=== PATIENT | male | born 1975 | race Caucasian/White ===

== ENCOUNTER 2020-11-09 15:03 | Outpatient (CLI) | payer OTHER ==
[2020-11-09 17:06] LABS: Hemoglobin 13.8 g/dL (13.5-17.5); Mean Corpuscular HGB CONC 34.2 g/dL (32.0-36.0); Mean Corpuscular Hemoglobin 32.2 pg (27.0-33.0); Mean Corpuscular Volume 94.4 fl (81.2-95.1); Mean Platelet Volume 11.1 fl (7.4-10.4); Platelet Count 200 10x3/uL (150-450); Red Blood Cell (RBC) Count 4.28 10x6/uL (4.32-5.72); White Blood Cell (WBC) Count 7.3 10x3/uL (3.5-10.5)
[2020-11-09 17:15] LABS: Anion Gap 15 mmol/L (10-20); BUN (Urea Nitrogen) 20 mg/dL (8.9-20.6); Calc. Creatinine Clearance 0 mL/min (70-130); Calcium 9.4 mg/dL (7.8-10.44); Carbon Dioxide 27 mmol/L (22-29); Chloride 100 mmol/L (98-107); Glucose 81 mg/dL (70-105); Potassium 4.1 mmol/L (3.5-5.1); Sodium 138 mmol/L (136-145)
[2020-11-10 01:57] LABS: SARS-CoV-2 PCR by NAA Not Detected (NotDetected)
== END 2020-11-09 15:04 | disposition home or self-care (01) ==
LOC: LABBT 15:03
PROVIDERS: ATTEND Neurological Surgery
DX: Z01.818 Encounter for other preprocedural examination (principal); Z20.822 Contact with and (suspected) exposure to COVID-19; M48.062 Spinal stenosis, lumbar region with neurogenic claudication
CPT/HCPCS: 80048; 85027; 87635; 93005; 93010; U0003; U0005

== ENCOUNTER 2020-11-14 06:46 | Day surgery (SDC) | payer OTHER ==
[2020-11-13 09:54] VITALS: BMI 32.8
[2020-11-14] MEDS ORDERED: Fentanyl 100 MCG/2 ML VIAL ONE ×3 (08:52→11:15)
[2020-11-14] MEDS ORDERED: PROPOFOL 200 MG/20 ML VIAL ONE (08:58)
[2020-11-14] MEDS ORDERED: Glycopyrrolate 0.2 MG/ML 5 ML SYRINGE ONE (08:58)
[2020-11-14] MEDS ORDERED: Lidocaine 1% PF 5 ML VIAL ONE (08:58)
[2020-11-14] MEDS ORDERED: Ondansetron PF 4 MG/2 ML Vial ONE (08:58)
[2020-11-14] MEDS ORDERED: Dexamethasone 20 MG/5 ML VIAL ONE (08:58)
[2020-11-14] MEDS ORDERED: Rocuronium Bromide 10 MG/ML (10ML VIAL) ONE (08:58)
[2020-11-14] MEDS ORDERED: HYDROmorphone 2 MG/ML VIAL ONE (09:58)
[2020-11-14] MEDS ORDERED: Tamsulosin HCl 0.4 MG CAP ONE (10:25)
[2020-11-14] MEDS ORDERED: HYDROcodone/Acetaminophen 5/325 mg Tablet ONE (12:20)
== END 2020-11-14 12:32 | disposition home or self-care (01) ==
LOC: SDC 06:46
PROVIDERS: ATTEND Neurological Surgery
PROC: 01NB0ZZ Release Lumbar Nerve, Open Approach (ICD-10-PCS; principal; 2020-11-14)
DX: M48.062 Spinal stenosis, lumbar region with neurogenic claudication (principal); Z79.899 Other long term (current) drug therapy
CPT/HCPCS: 76000; J0690; J1100; J1170; J2405; J2704; J3010; J3370

== ENCOUNTER 2021-06-05 09:15 | Outpatient (CLI) | payer OTHER ==
[2021-06-05 10:05] LABS: Hemoglobin 14.3 g/dL (13.5-17.5); Mean Corpuscular HGB CONC 33.3 g/dL (32.0-36.0); Mean Corpuscular Hemoglobin 32.2 pg (27.0-33.0); Mean Corpuscular Volume 96.6 fl (81.2-95.1); Mean Platelet Volume 10.9 fl (7.4-10.4); Platelet Count 202 10x3/uL (150-450); RBC Distribution Width 12.5 % (11.5-14.5); Red Blood Cell (RBC) Count 4.44 10x6/uL (4.32-5.72); White Blood Cell (WBC) Count 6.9 10x3/uL (3.5-10.5)
[2021-06-05 10:54] LABS: Anion Gap 14 mmol/L (10-20); BUN (Urea Nitrogen) 17 mg/dL (8.9-20.6); Calc. Creatinine Clearance 0 mL/min (70-130); Calcium 9.5 mg/dL (7.8-10.44); Carbon Dioxide 28 mmol/L (22-29); Chloride 100 mmol/L (98-107); Glucose 90 mg/dL (70-105); Potassium 4.4 mmol/L (3.5-5.1); Sodium 138 mmol/L (136-145)
[2021-06-06 12:04] LABS: SARS-CoV-2 PCR by NAA Not Detected (NotDetected)
== END 2021-06-05 09:16 | disposition home or self-care (01) ==
LOC: LABBT 09:15
PROVIDERS: ATTEND Neurological Surgery
DX: Z01.818 Encounter for other preprocedural examination (principal); M48.062 Spinal stenosis, lumbar region with neurogenic claudication; Z20.822 Contact with and (suspected) exposure to COVID-19
CPT/HCPCS: 80048; 85027; 93005; 93010; U0003; U0005

== ENCOUNTER 2021-06-10 06:55 | Observation (INO) | payer OTHER ==
[2021-06-07 14:59] VITALS: BMI 34.8
[2021-06-10] MEDS ORDERED: ceFAZolin Sodium (SDC) 2 GM/100 ML BAG ONE (07:24)
[2021-06-10] MEDS ORDERED: Fentanyl 250 MCG/5 ML VIAL ONE (09:04)
[2021-06-10] MEDS ORDERED: Dexamethasone 20 MG/5 ML VIAL ONE (09:19)
[2021-06-10] MEDS ORDERED: Ketorolac Tromethamine 30 MG/ML VIAL ONE (09:19)
[2021-06-10] MEDS ORDERED: ePHEDrine 50 MG/ML VIAL ONE (09:19)
[2021-06-10] MEDS ORDERED: Lidocaine 1% PF 5 ML VIAL ONE (09:19)
[2021-06-10] MEDS ORDERED: PROPOFOL 200 MG/20 ML VIAL ONE (09:19)
[2021-06-10] MEDS ORDERED: Ondansetron PF 4 MG/2 ML Vial ONE (09:19)
[2021-06-10] MEDS ORDERED: Rocuronium Bromide 10 MG/ML (10ML VIAL) ONE (09:19)
[2021-06-10] MEDS ORDERED: HYDROmorphone 2 MG/ML VIAL SLOW IVP PRN (10:31)
[2021-06-10] MEDS ORDERED: Promethazine HCl 25 MG/ML VIAL IM PRN ×2 (10:31→11:45)
[2021-06-10] MEDS ORDERED: Promethazine HCl 25 MG/ML VIAL IVPB PRN (10:31)
[2021-06-10] MEDS ORDERED: Ondansetron HCl/PF 4 MG/2 ML Vial IVP PRN (10:31)
[2021-06-10] MEDS ORDERED: Meperidine HCl/PF 25 MG/ML VIAL SLOW IVP PRN (10:31)
[2021-06-10] MEDS ORDERED: Morphine Sulfate 2 MG/ML SYRINGE SLOW IVP PRN (10:31)
[2021-06-10] MEDS ORDERED: PACU-Morphine 4MG/ML VIAL SLOW IVP PRN (10:31)
[2021-06-10] MEDS ORDERED: SUGAMMADEX SODIUM 200 MG/2 ML VIAL ONE (10:45)
[2021-06-10] MEDS ORDERED: HYDROmorphone 2 MG/ML VIAL ONE (10:57)
[2021-06-10] MEDS ORDERED: Tamsulosin HCl 0.4 MG CAP ONE (11:24)
[2021-06-10] MEDS: Tamsulosin HCl 0.4 MG CAP PO SCH (11:27)
[2021-06-10] MEDS ORDERED: Promethazine HCl 12.5 MG SUPP PR PRN (11:45)
[2021-06-10] MEDS ORDERED: Promethazine 25 MG TAB PO PRN (11:45)
[2021-06-10] MEDS ORDERED: Milk Of Magnesia 30 ML UDCUP PO PRN (11:45)
[2021-06-10] MEDS ORDERED: diphenhydrAMINE 25 MG CAP PO PRN (11:45)
[2021-06-10] MEDS ORDERED: Acetaminophen/Codeine 30-300mg Tablet PO PRN (11:45)
[2021-06-10] MEDS ORDERED: Ondansetron PF 4 MG/2 ML Vial IM PRN (11:45)
[2021-06-10] MEDS ORDERED: Morphine 4 MG/ML VIAL SLOW IVP PRN ×2 (11:45)
[2021-06-10] MEDS ORDERED: traMADol HCl 50 MG TAB PO PRN ×2 (11:45)
[2021-06-10] MEDS ORDERED: Morphine 2 MG/ML VIAL SLOW IVP PRN (11:45)
[2021-06-10] MEDS ORDERED: Mag-Al 1200 mg/1200 mg/30 ML UDCUP PO PRN (11:45)
[2021-06-10] MEDS ORDERED: tiZANidine HCl 4 MG TAB PO PRN (11:45)
[2021-06-10] MEDS ORDERED: diphenhydrAMINE 50 MG/ML VIAL IVP PRN (11:45)
[2021-06-10] MEDS ORDERED: Ibuprofen 600 MG TAB PO PRN (11:47)
[2021-06-10] MEDS ORDERED: Acetaminophen 325 MG TAB PO PRN (11:47)
[2021-06-10] MEDS: Acetaminophen/Codeine 30-300mg Tablet PO PRN (12:16)
[2021-06-10] MEDS: Sodium Chloride 0.9% 1,000 ML IV SCH (12:18)
[2021-06-10] MEDS: Pregabalin 50 MG CAP PO SCH (19:51)
[2021-06-11] MEDS: Sodium Chloride 0.9% 1,000 ML IV SCH (03:52)
[2021-06-11] MEDS: Tamsulosin HCl 0.4 MG CAP PO SCH (05:24)
[2021-06-11] MEDS: Acetaminophen/Codeine 30-300mg Tablet PO PRN (05:26)
[2021-06-11] MEDS: Pregabalin 50 MG CAP PO SCH (07:53)
[2021-06-11 08:02] VITALS: BP 115/72; TEMP 97.9
[2021-06-11] MEDS ORDERED: Hydrochlorothiazide 25 MG TAB PO SCH (09:00)
[2021-06-11] MEDS ORDERED: Losartan 25 MG TAB PO SCH (09:00)
== END 2021-06-11 10:02 | disposition home or self-care (01) ==
LOC: SDC 06:55 → T4-A 11:11
PROVIDERS: ADMIT Neurological Surgery; ATTEND Neurological Surgery
PROC: 0SG0071 Fusion of Lumbar Vertebral Joint with Autologous Tissue Substitute, Posterior Approach, Posterior Column, Open Approach (ICD-10-PCS; principal; 2021-06-10)
DX: M48.062 Spinal stenosis, lumbar region with neurogenic claudication (principal); Z79.899 Other long term (current) drug therapy
CPT/HCPCS: 76000; C1713; C1768; G0378; J0690; J1100; J1170; J1885; J2405; J2704; J3010; J3370; J3490

== ENCOUNTER 2021-07-04 08:54 | Outpatient (CLI) | payer OTHER | END 2021-07-04 08:55 | disposition home or self-care (01) | LOC: TBSIIMAG 08:54 | PROVIDERS: ATTEND Neurological Surgery | DX: M48.061 Spinal stenosis, lumbar region without neurogenic claudication (principal); M47.816 Spondylosis without myelopathy or radiculopathy, lumbar region; Z98.890 Other specified postprocedural states | CPT/HCPCS: 72100 ==

== ENCOUNTER 2021-08-29 09:13 | Outpatient (CLI) | payer OTHER | END 2021-08-29 09:14 | disposition home or self-care (01) | LOC: TBSIIMAG 09:13 | PROVIDERS: ATTEND Neurological Surgery | DX: M48.062 Spinal stenosis, lumbar region with neurogenic claudication (principal); Z98.890 Other specified postprocedural states | CPT/HCPCS: 72100 ==

== ENCOUNTER 2024-04-25 08:38 | Outpatient (CLI) | payer BC | END 2024-04-25 08:39 | disposition home or self-care (01) | LOC: SCSMRI 08:38 | PROVIDERS: ATTEND Family Medicine | DX: M54.16 Radiculopathy, lumbar region (principal); M51.36 Other intervertebral disc degeneration, lumbar region; M47.816 Spondylosis without myelopathy or radiculopathy, lumbar region | CPT/HCPCS: 72148 ==